=== PATIENT | male | born 1990 | race Caucasian/White ===

== ENCOUNTER 2020-02-28 15:51 | Emergency (ER) | payer SELFPAY ==
[~2020-02-28] VITALS: Ht 182 cm; Wt 127.0 kg
[2020-02-28 16:00] VITALS: BP 148/70
--- NOTE | 2020-02-28 16:19 | ED Cough/URI ---
General Stated Complaint: COUGH;SOA Source: patient Exam Limitations: no limitations History of Present Illness Date Seen by Provider: Feb 28, 2020 Time Seen by Provider: 15:55 Initial Comments the patient presents to ER by private conveyance with chief complaint of cough, runny nose, malaise but no body aches fever or chills. No nausea vomiting diarrhea loss of sense of taste or smell. He was told by his work he could not come back to work until he had clearance. He is using occasional Tylenol for his headache. Allergies and Home Medications Patient Home Medication List Home Medication List Reviewed: Yes Review of Systems Review of Systems Constitutional: No chills, No diaphoresis, No fever; malaise EENTM: No hearing loss, No ear pain Respiratory: cough, orthopnea; No phlegm, No short of breath, No wheezing Cardiovascular: No chest pain, No edema, No palpitations Gastrointestinal: No abdominal pain, No nausea, No vomiting Genitourinary: No discharge, No dysuria All Other Systems Reviewed Negative Unless Noted: Yes Past Lbqxfhz-Eeawwd-Xbdatc Hx Patient Social History Alcohol Use: Occasionally Uses Recreational Drug Use: No Smoking Status: Current Everyday Smoker Type Used: Cigarettes (0.5 ppd) Physical Exam Capillary Refill : Height: '" Weight: lbs. oz. kg; BMI Method: General Appearance: WD/WN, no apparent distress Eyes: Bilateral Eye Normal Inspection, Bilateral Eye PERRL, Bilateral Eye EOMI HEENT: PERRL/EOMI, normal ENT inspection, TMs normal, pharynx normal Neck: non-tender, full range of motion, supple, normal inspection Respiratory: lungs clear, normal breath sounds, no respiratory distress, no accessory muscle use Cardiovascular: normal peripheral pulses, regular rate, rhythm Neurologic/Psychiatric: alert, normal mood/affect, oriented x 3 Skin: normal color, warm/dry Progress/Results/Core Measures Suspected Sepsis SIRS Temperature: Pulse: Respiratory Rate: Blood Pressure / Mean: Results/Orders My Orders Orders - ALEKSANDRA CISSE Coronavirus Sars-Cov-2 So 2018 (02/28/20 16:12) Vital Signs/I&O Capillary Refill : Progress Note : Time: 16:15 Progress Note suspect viral upper respiratory tract infection. COVID swab obtained. Work note given. Return precautions and conservative counseling for management of headache and cold symptoms. Ermelinda Santiago. Departure Impression Primary Impression: URI with cough and congestion Disposition: HOME, SELF-CARE Condition: Stable Departure-Patient Inst. Decision time for Depature: 16:15 Patient Instructions: Coronavirus Disease 2019 (COVID-19) (DC), Viral Upper Respiratory Infection, Adult (DC) Add. Discharge Instructions: I suspect you have a viral infection such as a cold. We did a swab for COVID 19 and will have the results back in about 2 days. They will call you with the results. Follow the instructions as they're printed out. Drink plenty fluids. Tylenol 1000 g every 8 hours as necessary for headache, pain or fever. Ibuprofen 800 mg every 8 hours as necessary for headache, pain or fever. Tessalon Perles 1 capsule every 6 hours as necessary for cough. Return to work when you are 10 days out from the start of symptoms or next 03/06/20 and you are at least 72 hours without symptoms. Stay quarantined in your home away from family and friends. return to the nearest ER if you have difficulty breathing, persistent chest pain or other worrisome symptoms. Scripts Benzonatate (Tessalon Perle) 100 Mg Capsule 100 MG PO Q6H PRN for COUGH, #30 CAP 0 Refills Prov: ALEKSANDRA CISSE 02/28/20 Work/School Note: Work Release Form Date Seen in the Emergency Department: Feb 28, 2020 Return to Work: Mar 06, 2020 Restrictions: Need Release from Doctor Other Restrictions Listed Below: return to work when 72 hours symptoms free & 10 days from start of symptoms ALEKSANDRA CISSE Feb 28, 2020 16:19
[2020-02-28] MEDS ORDERED: BENZ-13 PO (16:21)
== END 2020-02-28 16:40 | disposition home or self-care (01) ==
LOC: ER 15:53
DX: J06.9 Acute upper respiratory infection, unspecified (principal); F17.210 Nicotine dependence, cigarettes, uncomplicated; Z20.828 Contact with and (suspected) exposure to other viral communicable diseases
CPT/HCPCS: 87635; 99282

== ENCOUNTER 2020-03-17 19:35 | Emergency (ER) | payer SELFPAY ==
[~2020-03-17] VITALS: Ht 182.8 cm; Wt 126.6 kg
[~2020-03-17 19:35] MED LIST: BENZ-13 PO
[2020-03-17] MEDS ORDERED: PROCHLORPERAZINE 10 MG/2ML INJ (COMPAZINE) IV ONE (19:45)
[2020-03-17] MEDS ORDERED: KETOROLAC 30 MG/ML VIAL IVP ONE (19:45)
[2020-03-17] MEDS ORDERED: NS IV 1000 ML 1,000 ML IV SCH (19:45)
[2020-03-17] MEDS ORDERED: diphenhydrAMINE 50 MG/ML INJ (BENADRYL) IVP ONE (19:45)
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
--- NOTE | 2020-03-17 20:19 | Diagnostic Imaging Report ---
PROCEDURE: CT head without contrast. TECHNIQUE: Multiple contiguous axial images were obtained through the brain without the use of intravenous contrast. Auto Exposure Controls were utilized during the CT exam to meet ALARA standards for radiation dose reduction. INDICATION: Headache There are no prior studies available for comparison. There is no mass, shift to the midline or hemorrhage to suggest an acute intracranial abnormality. The ventricles are not abnormally dilated. 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 The cisterna magna is also somewhat prominent and this too is a developmental variant. The bone windows show no sign of a fracture or of a destructive lesion. The orbits and sinuses were not visualized in their entirety. Where visualized, there is no acute abnormality. IMPRESSION: 1. There is no evidence for an acute intracranial abnormality. 2. If clinical concern regarding an underlying abnormality persists, then MRI would be recommended for further study. Dictated by: Dictated on workstation # [id number]
[2020-03-17] MEDS ORDERED: LIDOCAINE 1% INJ 20 ML 20 ML VIAL INJ ONE (20:30)
[2020-03-17] MEDS ORDERED: IOHEXOL 350 MG/ML 100 ML (OMNIPAQUE 350) VIAL IV ONE (20:45)
[2020-03-17] MEDS ORDERED: NS 100 ML (IVPB) BAG IV ONE (20:45)
[2020-03-17] MEDS ORDERED: HOLD METFORMIN - RECEIVED CONTRAST 20 ML VIAL IV SCH (20:45)
[2020-03-17] MEDS ORDERED: CATHETER FLUSH 10 ML SYR IV PRN (20:45)
--- NOTE | 2020-03-17 21:47 | Diagnostic Imaging Report ---
INDICATION: Headache. EXAMINATION: CTA of the head with contrast. Contiguous axial sections were taken through the skull following administration of intravenous contrast. Sagittal and coronal reconstructed images were also obtained. MIP images of the intracranial circulation were performed as well. All CT scans use one or more of the following dose optimizing techniques: automated exposure control, MA and/or KvP adjustment based on patient size and exam type or iterative reconstruction. The CT head exam performed prior to this study failed to show any sign of an acute abnormality. On this exam, there is no evidence for a large vessel occlusion. There is no aneurysm of the [place] identified either. There is no abnormal enhancement to suggest a neoplastic or infectious process either. The ventricles are not abnormally dilated. 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 IMPRESSION: 1. There is no evidence for a large vessel occlusion. There is no sign of an aneurysm of the [place] either. 2. If clinical concern regarding an acute abnormality persists, then MRI would be recommended for further study. Dictated by: Dictated on workstation # [id number]
[2020-03-17 21:49] VITALS: BP 121/85
== END 2020-03-17 21:49 | disposition home or self-care (01) ==
LOC: EDUNIT# 19:35 → ER 19:37
DX: R51 Headache (principal); Z20.828 Contact with and (suspected) exposure to other viral communicable diseases
CPT/HCPCS: 70450; 70496

== ENCOUNTER 2020-07-05 02:19 | Emergency (ER) | payer SELFPAY ==
[~2020-07-05] VITALS: Ht 180 cm; Wt 122.5 kg
[2020-07-05 02:30] VITALS: BP 156/97
[2020-07-05] MEDS ORDERED: AMOXICILLIN 500 MG (POLYMOX) CAP PO STA (02:40)
[2020-07-05] MEDS ORDERED: NAPROXEN 250 MG (NAPROSYN) TABLET PO ONE (02:45)
[2020-07-05] MEDS ORDERED: LIDO20SO23 MM (02:45)
[2020-07-05] MEDS ORDERED: LIDOCAINE 2% VISCOUS 15 ML UDC PO ONE (02:45)
[2020-07-05] MEDS ORDERED: AMOX875T2 PO (02:45)
[2020-07-05] MEDS ORDERED: NAPR500T8 PO (02:45)
--- NOTE | 2020-07-05 02:45 | ED EENT ---
History of Present Illness General Chief Complaint: Dental Problems/Pain Stated Complaint: DENTAL PAIN Nursing Triage Note: PT AMBULATES TO ROOM #5 WITH C/O DENTAL PAIN. PT REPORTS ON THE MORNING OF 07/04/20 WHILE EATING CEREAL, HE "CRACKED" HIS L BOTTOM MOLAR. REPORTS SENSITIVITY ET PAIN. REPORTS TO HAVE CONTACTED X3 DENTIST ET IS UNABLE TO BE SEEN UNTIL 07/10/19. A&OX4. Source: patient History of Present Illness Date Seen by Provider: Jul 05, 2020 Time Seen by Provider: 02:34 Initial Comments PT ARRIVES VIA POV--STATES HE CAME FROM WORK ( WORKS 2PM TO 2 AM) C/O DENTAL PAIN STATES YESTERDAY MORNING AROUND 0900, HIS TOOTH BROKE OFF WHEN HE WAS EATING CEREAL. HAS HAD PAIN IN TOOTH EVER SINCE. NO SWELLING TO GUMS OR FACE NO BLEEDING FROM THE AREA HAS HAD A FILLING IN THE TOOTH, PLACED WHEN HE WAS YOUNG HAS NOT TAKEN ANYTHING FOR PAIN DOES NOT HAVE A DENTIST--STATES HE "HAS NEVER SEEN A DENTIST" EXCEPT FOR THE ONE TIME WHEN HE WAS YOUNGER AND HAD A FILLING PLACED. STATES HE JUST MOVED HERE 2 MONTHS AGO FROM [facility] HE CALLED 3 DENTISTS YESTERDAY AND "NO ONE COULD SEEN HIM" PCP: NONE Allergies and Home Medications Allergies Coded Allergies: No Known Drug Allergies (Unverified , 02/28/20) Home Medications Amoxicillin 875 Mg Tablet, 875 MG PO BID Prescribed by: SIDDHARTH PATTON on 07/05/20 0245 Benzonatate 100 Mg Capsule, 100 MG PO Q6H PRN for COUGH Prescribed by: ALEKSANDRA CISSE on 02/28/20 1621 Lidocaine HCl 15 Ml Solution, 1-2 ML MM [id number] Prescribed by: SIDDHARTH PATTON on 07/05/20 0245 Naproxen 500 Mg Tablet.dr, 500 MG PO BID Prescribed by: SIDDHARTH PATTON on 07/05/20 0245 Patient Home Medication List Home Medication List Reviewed: Yes Review of Systems Review of Systems Constitutional: no symptoms reported Mouth: see HPI Throat: no symptoms reported Neurological: No Symptoms Reported Past Kjontne-Bgcoyc-Vguydr Hx Past Med/Social Hx: Reviewed and Corrections made Patient Social History Alcohol Use: Occasionally Uses Recreational Drug Use: No Smoking Status: Current Everyday Smoker (1 1/2 PPD) Type Used: Cigarettes 2nd Hand Smoke Exposure: Yes Recent Foreign Travel: No Contact w/Someone Who Travel: No Recent Infectious Disease Expo: No Recent Hopitalizations: No Immunizations Up To Date Tetanus Booster (TDap): Unknown Seasonal Allergies Seasonal Allergies: No Past Medical History Surgeries: Yes (RIGHT ANKLE FX/ ORIF) Orthopedic Respiratory: No Cardiac: No Neurological: Yes Headaches /Migraines Genitourinary: No Gastrointestinal: No Musculoskeletal: Yes (RIGHT ANKLE FX/ORIF) Fractures Endocrine: No HEENT: Yes (DENTAL CARIES) Cancer: No Psychosocial: No Integumentary: No Blood Disorders: No Physical Exam Vital Signs Vital Signs - First Documented 07/05/20 02:30 Temp 36.1 Pulse 84 Resp 18 B/P (MAP) 156/97 (116) Pulse Ox 99 O2 Delivery Room Air Height, Weight, BMI Height: '" Weight: lbs. oz. kg; 37.00 BMI Method: General Appearance: WD/WN, no apparent distress Eyes: bilateral eye normal inspection Mouth/Throat: No mandibular swelling, No maxillary swelling, No trismus; other (LEFT LOWER 1ST MOLAR, WITH FILLING IN PLACE, BUT POSTERIOR ASPECT OF TOOTH AROUND IT APPEARS TO HAVE BROKEN OFF. TOOTH VERY TENDER TO LIGHT TOUCH. NO SURROUNDING GUM INFLAMMATION. NO BLEEDING. NO DRAINAGE. NO SWELLING TO FACE. DOES HAVE SCATTERED DENTAL CARIES OF OTHER TEETH. 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, no motor/sensory deficits, alert, oriented x 3 Skin: normal color, warm/dry Progress/Results/Core Measures Results/Orders My Orders Orders - SIDDHARTH PATTON DO Amoxicillin Capsule (Polymox Capsule) (07/05/20 02:40) Lidocaine 2% Viscous 15 Ml (Xylocaine Vi (07/05/20 02:45) Naproxen Tablet (Naprosyn Tablet) (07/05/20 02:45) Medications Given in ED Current Medications Medications Dose Ordered Sig/Roberta Route Start Time Stop Time Status Last Admin Dose Admin Lidocaine HCl 5 ml ONCE ONCE PO 07/05/20 02:45 07/05/20 02:46 DC 07/05/20 02:50 5 ML Naproxen 500 mg ONCE ONCE PO 07/05/20 02:45 07/05/20 02:46 DC 07/05/20 02:49 500 MG Vital Signs/I&O 07/05/20 02:30 Temp 36.1 Pulse 84 Resp 18 B/P (MAP) 156/97 (116) Pulse Ox 99 O2 Delivery Room Air Blood Pressure Mean: 116 Departure Impression Primary Impression: Dental caries Additional Impression: Tooth fracture without loss of restorative material Disposition: 01 HOME, SELF-CARE Condition: Stable Departure-Patient Inst. Referrals: NO,LOCAL PHYSICIAN (PCP) Primary Care Physician [facility] Patient Instructions: Fractured Tooth (DC), Dental Pain (DC), Tooth Decay, Adult (DC) Add. Discharge Instructions: FREQUENT S[place] SWISHES TYLENOL 1 GRAM 4 TIMES A DAY NEEDED FOR PAIN FOLLOW UP WITH DENTIST OF CHOICE SOON POSSIBLE, CALL TODAY TO MAKE AN AP POINTMENT. YOU MAY ALSO TRY [facility] All discharge instructions reviewed with patient and/or family. Voiced understanding. Scripts Naproxen (Naproxen) 500 Mg Tablet.dr 500 MG PO BID, #20 TAB Prov: SIDDHARTH PATTON DO 07/05/20 Lidocaine HCl (Lidocaine HCl Viscous) 15 Ml Solution 1-2 ML MM [id number], #120 ML Prov: SIDDHARTH PATTON DO 07/05/20 Amoxicillin (Amoxicillin) 875 Mg Tablet 875 MG PO BID, #20 TAB Prov: SIDDHARTH PATTON DO 07/05/20 SIDDHARTH PATTON DO Jul 05, 2020 02:45
== END 2020-07-05 03:11 | disposition home or self-care (01) ==
LOC: EDUNIT# 02:19 → ER 02:22
DX: S02.5XXA Fracture of tooth (traumatic), initial encounter for closed fracture (principal); K02.9 Dental caries, unspecified; F17.210 Nicotine dependence, cigarettes, uncomplicated; X58.XXXA Exposure to other specified factors, initial encounter
CPT/HCPCS: 99283